=== PATIENT | female | born 1990 | race Caucasian/White ===

== ENCOUNTER 2022-01-06 05:30 | Emergency (ER) | payer BC ==
[2022-01-06 06:21] LABS: HEMOGLOBIN 14.9 gm/dl (12.3-15.3); RED BLOOD COUNT 5.15 M/UL (4.00-5.10); WHITE BLOOD COUNT 10.4 K/UL (4.5-11.0)
[2022-01-06 06:57] LABS: BUN/CREATININE RATIO 14 (0-10)
[2022-01-06] MEDS ORDERED: ZOFRAN 4 MG TAB4 MG PO (07:50)
== END 2022-01-06 08:35 | disposition home or self-care (01) ==
LOC: ER1 05:30
PROVIDERS: Physician Assistant
DX: R10.10 Upper abdominal pain, unspecified (principal); R10.812 Left upper quadrant abdominal tenderness; R10.811 Right upper quadrant abdominal tenderness; R11.2 Nausea with vomiting, unspecified; E07.9 Disorder of thyroid, unspecified
CPT/HCPCS: 0240U; 80053; 81001; 82150; 83690; 84703; 85025; 87081; 87086; 87880; 96374; 99284; J2405; J7030